=== PATIENT | female | born 1955 | race Caucasian/White ===

== ENCOUNTER 2016-07-27 08:20 | Observation (INO) ==
[2016-07-27] MEDS: NITROGLYCERIN 0.4 MG SUBLINGUAL TABLET SL PRN ×3 (08:48→09:00)
[2016-07-27] MEDS ORDERED: GI COCKTAIL 30 ML PO ONE (09:12)
[2016-07-27] MEDS ORDERED: ONDANSETRON 4 MG/2 ML INJECTION IVP ONE (09:12)
[2016-07-27] MEDS ORDERED: NS 1,000 ML IV ONE (09:12)
[2016-07-27] MEDS ORDERED: ASPIRIN 81 MG CHEWABLE TABLET PO ONE (09:12)
--- NOTE | 2016-07-27 10:41 | Emergency Department Report ---
Chest Pain HPI - General Chief Complaint: Chest Pain Stated Complaint: cp Time Seen by Provider: 07/27/16 09:06 - History of Present Illness HPI narrative: 61-year-old female presents with chest pain. She has a history of atrial fibrillation with ablation 2. She has had difficulty controlling her hypertension and the last month has been struggling. This last week she was told to double her Cardizem to control her pressure. She has felt sluggish and tired. Last night felt like she had an elephant sitting on her chest and had some chest pain with shortness of breath. This was intermittent overnight, ultimately progressing through this morning when she came into the emergency department. On arrival she still had chest pain that was 4-5 out of 10. She was given nitroglycerin sublingual which did help resolve her pain. She is now pain- free at rest, did get chest pain and dizziness when she stood up to go to the bathroom. - Related Data Home Medications Medication Instructions Recorded Confirmed Aspirin [Aspir 81] 81 mg PO DAILY #0 03/02/12 07/27/16 Potassium Chloride 10 meq PO DAILY #0 03/02/12 07/27/16 Calcium Carbonate/Vitamin D3 1 tab PO DAILY #0 11/30/14 07/27/16 [Calcium 600-Vit D3 200 Tablet] Multivitamin [Multivitamins] 1 tab PO DAILY #0 11/30/14 07/27/16 D-Mannose 1 gm PO DAILY #0 11/19/15 07/27/16 Hydroxychloroquine Sulfate 300 mg PO DAILY #0 tab 11/19/15 07/27/16 Albuterol Sulfate [Proair 1 puff INH DAILY PRN 07/27/16 07/27/16 Respiclick] Ascorbic Acid [Vitamin C] 500 mg PO DAILY 07/27/16 07/27/16 Levothyroxine Sodium 88 mcg PO ACB 07/27/16 07/27/16 dilTIAZem HCl [Cartia Xt] 120 mg PO BID 07/27/16 07/27/16 Allergies Allergy/AdvReac Type Severity Reaction Status Date / Time egg Allergy Severe RAW EGGS Verified 07/27/16 09:25 CAUSE SWELLING ALL OVER Iodinated Contrast Media - Allergy Severe HIVES, Verified 07/27/16 09:25 Oral and LIPS SWELLED, THROAT ITCHING Penicillins Allergy Severe SWELLS UP Verified 07/27/16 09:25 ON INSIDE codeine AdvReac Intermediate LOW BP Verified 07/27/16 09:25 BABY ASA Allergy Intermediate HIVES AND Uncoded 07/27/16 09:25 SWELLING WHEN TAKEN IN LG DOSES Review of Systems All systems: reviewed and negative except as stated Cardiovascular: Reports: as per HPI Respiratory: Reports: as per HPI Musculoskeletal: Reports: as per HPI PFSH Patient Stated Medical History Angina Yes Heart Murmur Yes Hypertension Yes Other Cardiology Yes: HX OF LUCIO-PARKINSONS WHITE Asthma Yes Bronchitis Yes: HX OF Pneumonia Yes: HX OF Osteoarthritis Yes Surgical History: Hysterectomy - Social History Smoking status: Never smoker Substance use type: does not use Physical Exam - Limitations Limitations: no limitations - General General appearance: alert, in no apparent distress - Normal Exams: Neck:: Full range of motion, without adenopathy, JVD, bruits or thyromegaly Chest/Respirations:: Clear all quigley, with good airflow, and symmetry bilaterally Cardiovascular:: Regular rate and rhythm, without murmur or gallop, Pulses 2+ all extremities, capillary refill, <2 seconds all extremities Abdomen:: Bowel sounds positive Neurological:: Patient is alert, and oriented, cranial nerves, motor/sensory/ cerebellar, exams w/o gross deficits, to observation Course Vital Signs Temperature 98.0 F 07/27/16 08:20 Pulse Rate 74 07/27/16 08:20 Respiratory Rate 24 07/27/16 08:20 Blood Pressure 204/98 H 07/27/16 08:20 Pulse Oximetry 98 07/27/16 08:20 Temperature 98.0 F 07/27/16 08:20 Pulse Rate 68 07/27/16 11:00 Respiratory Rate 14 07/27/16 11:00 Blood Pressure 192/85 H 07/27/16 11:00 Pulse Oximetry 98 07/27/16 10:15 Chest Pain - MDM Narrative Medical decision making narrative: Patient has normal CBC CMP troponin. Chest x-ray is negative. D-dimer is negative. EKG 2 is negative. Patient did have repeat episode of chest pain while in the ED, EKG was obtained which showed no acute changes. She was given another nitroglycerin and pain resolved. Cardiology was consulted and came to evaluate the patient in regards to potential for admission due to chest pain and other hypertensive issues. Patient will be admitted to Dr. Mills. - Lab Data Result diagrams: 07/27/16 09:13 07/27/16 09:13 Lab Results 07/27/16 07/27/16 07/27/16 Range/Units 09:13 09:13 09:13 WBC 5.8 (4.5-11.0) T/MM3 RBC 5.06 (4.00-5.20) M/MM3 Hgb 14.3 (12-16) GM/DL Hct 43.0 (36-46) % MCV 85.0 (80-100) UM3 MCH 28.3 (26-34) UUG MCHC 33.3 (31-37) GM/DL RDW Std Deviation 38.1 (36.9-50.2) FL Plt Count 344 (130-400) T/MM3 MPV 9.4 (9.4-12.4) UM3 Immature Gran % (Auto) 0.0 (0.0-0.5) % Neut % (Auto) 42.2 (33-66) % Lymph % (Auto) 43.4 (23-45) % Knott % (Auto) 9.6 H (0-9.0) % Eos % (Auto) 4.3 H (0-4) % Baso % (Auto) 0.5 (0-2) % Neut # 2.5 (1.8-7.7) T/MM3 Lymph # 2.5 (1-4.8) T/MM3 Knott # 0.6 (0-0.8) T/MM3 Eos # 0.3 (0-0.5) T/MM3 Baso # 0.0 (0-0.2) T/MM3 Abs Immat Gran (auto) 0.00 (0.00-0.03) T/MM3 INR 1.13 (0.99-1.21) D-Dimer < 150 (0-230) NG/ML Turbidity < 20.0 (0-20) Sodium 147 H (134-144) MEQ/L Potassium 3.9 (3.6-5) MEQ/L Chloride 105 (98-107) MEQ/L Carbon Dioxide 27 (22-30) MEQ/L Anion Gap 15 (5-15) MEQ/L BUN 15.0 (7-17) MG/DL Creatinine 0.7 (0.7-1.2) MG/DL GFR Calculation 85 BUN/Creatinine Ratio 21 (6-26) RATIO Glucose 95 (65-110) MG/DL Calculated Osmolality 283 H (261-280) MOSM/KG Calcium 9.4 (8.4-10.2) MG/DL Total Bilirubin 0.70 (0.20-1.30) MG/DL Icterus Index < 2.0 (0-7) AST 25 (14-36) U/L ALT 38 (9-52) U/L Alkaline Phosphatase 112 (38-126) U/L Troponin I < 0.012 (0-0.12) ng/ml B-Natriuretic Peptide 108 (0-175) pg/mL Total Protein 7.7 (6.3-8.2) G/DL Albumin 4.4 (3.5-5.0) G/DL Globulin 3.3 (2.4-3.6) G/DL Albumin/Globulin Ratio 1.3 (1.1-2.2) RATIO Lipase 93 (23-300) U/L Specimen Hemolysis < 15.0 (0-25) Disposition Clinical Impression: Chest pain Disposition: To [facility] Condition: Improved Prescriptions: No Action Potassium Chloride 10 meq PO DAILY #0 Aspirin [Aspir 81] 81 mg PO DAILY #0 Multivitamin [Multivitamins] 1 tab PO DAILY #0 Calcium Carbonate/Vitamin D3 [Calcium 600-Vit D3 200 Tablet] 1 tab PO DAILY # 0 D-Mannose 1 gm PO DAILY #0 Ascorbic Acid [Vitamin C] 500 mg PO DAILY Hydroxychloroquine Sulfate 300 mg PO DAILY #0 tab Levothyroxine Sodium 88 mcg PO ACB dilTIAZem HCl [Cartia Xt] 120 mg PO BID Albuterol Sulfate [Proair Respiclick] 1 puff INH DAILY PRN PRN Reason: Prn Orders Referrals: Robinson Steinberg MD [Family Provider] - Time of Disposition: 11:28 - Seen By: physician
[2016-07-27] MEDS ORDERED: SALINE FLUSH 10ml SYRINGE IVF PRN ×2 (10:56)
--- NOTE | 2016-07-27 11:07 | XRay Report ---
INDICATION: dyspnea PROCEDURE: CHEST 2-VIEWS UPRIGHT (PA & LAT) Encounter: Initial COMPARISON: November 19, 2015 Findings: The lungs are stable in appearance without new focal airspace consolidation. There is no pleural effusion or pneumothorax. The heart size, pulmonary vascularity and mediastinal contours are unchanged. IMPRESSION: Stable appearance of the chest without acute cardiopulmonary disease. .
[2016-07-27] MEDS ORDERED: HYDRALAZINE 20 MG/ML INJECTION IVP PRN (12:35)
[2016-07-27] MEDS ORDERED: ALBUTEROL SULFATE INH PRN (12:38)
[2016-07-27] MEDS ORDERED: ALBUTEROL 2.5mg/3ml (0.083%) NEB AEROSOL PRN (12:48)
--- NOTE | 2016-07-27 12:49 | Cardiology History & Physical ---
History of Present Illness Chief complaint: chest pain HPI: Rahel is a 61-year-old female who is a patient of Dr. Erasto Jack who presented to the ED this morning with chest pain. She has a history of atrial fibrillation with ablation 2. She had a recent Holter which showed some tachycardia. It was felt that it could be due to her Thyroid medication so it was adjusted. She has had difficulty controlling her hypertension and has been seen in the past week by her half backer and family physician. She was directed to double her Cardizem to control her pressure. She has felt sluggish and tired. Last evening around 5:00 while laying on the couch she felt like she had an elephant sitting on her chest and had some chest pain with shortness of breath. This was intermittent overnight, ultimately progressing through this morning when she came into the ED. On arrival she still had chest pain that was 4-5 out of 10. She was given nitroglycerin sublingual which did help resolve her pain. She did have further chest pain and dizziness when she stood up to go to the bathroom while in the ED. Both EKGs obtained are without ischemic changes. Initial troponin is negative. I was called and examined the patient in the ED. She looks ill and states she has felt fatigued since last Thursday when she suffered from diarrhea while shopping at [employer]. She denies chest pain or pressure at this time. She denies palpitations, dyspnea, dizziness or N/V/D. Will plan to admit to observation for chest pain, R/O GA as well as poor Hypertension control. Review of Systems - Constitutional Constitutional: Present: fatigue, weakness. Absent: chills, fever(s) - EENMT Eyes: Absent: change in vision Balance: Absent: vertigo Mouth/Throat: Absent: sore throat - Cardiovascular Cardiovascular: Present: chest pain. Absent: palpitations, syncope, dyspnea on exertion, orthopnea, edema Vascular: Absent: pedal edema - Respiratory Respiratory: Present: dyspnea (with chest apin last evening). Absent: cough - Gastrointestinal Gastrointestinal: Present: diarrhea (last week). Absent: abdominal pain, nausea , vomiting - Genitourinary Genitourinary: Absent: dysuria - Neurological Neurological: Absent: confusion, dizziness PFSH Patient Stated Medical History Angina Yes Heart Murmur Yes Hypertension Yes Other Cardiology Yes: HX OF LUCIO-PARKINSONS WHITE, W/ablation Asthma Yes Bronchitis Yes: HX OF Pneumonia Yes: HX OF Osteoarthritis Yes Hypothyroidism Yes GERD Yes Lupus Yes Surgical History: Radio Ablation. Appendix. tonsils. Hysterectomy Family History: Asthma Hypertension - Social History Smoking status: Never smoker Household members: spouse Current occupational status: employed Medications Home Medications Medication Instructions Recorded Confirmed Type Aspirin [Aspir 81] 81 mg PO DAILY #0 03/02/12 07/27/16 History Potassium Chloride 10 meq PO DAILY #0 03/02/12 07/27/16 History Calcium Carbonate/Vitamin D3 1 tab PO DAILY #0 11/30/14 07/27/16 History [Calcium 600-Vit D3 200 Tablet] Multivitamin [Multivitamins] 1 tab PO DAILY #0 11/30/14 07/27/16 History D-Mannose 1 gm PO DAILY #0 11/19/15 07/27/16 History Hydroxychloroquine Sulfate 300 mg PO DAILY #0 tab 11/19/15 07/27/16 History Albuterol Sulfate [Proair 1 puff INH DAILY PRN 07/27/16 07/27/16 History Respiclick] Ascorbic Acid [Vitamin C] 500 mg PO DAILY 07/27/16 07/27/16 History Levothyroxine Sodium 88 mcg PO ACB 07/27/16 07/27/16 History Allergies Allergy/AdvReac Type Severity Reaction Status Date / Time egg Allergy Severe RAW EGGS Verified 07/27/16 09:25 CAUSE SWELLING ALL OVER Iodinated Contrast Media - Allergy Severe HIVES, Verified 07/27/16 09:25 Oral and LIPS SWELLED, THROAT ITCHING Penicillins Allergy Severe SWELLS UP Verified 07/27/16 09:25 ON INSIDE codeine AdvReac Intermediate LOW BP Verified 07/27/16 09:25 BABY ASA Allergy Intermediate HIVES AND Uncoded 07/27/16 09:25 SWELLING WHEN TAKEN IN LG DOSES Exam Vital signs: Temp Pulse Resp BP Pulse Ox 95.6 F L 64 18 163/90 H 99 07/27/16 11:54 07/27/16 11:54 07/27/16 11:54 07/27/16 11:54 07/27/16 11:54 - Constitutional no acute distress, well nourished, well developed, disheveled - Routine HEENT Exam ENT: Present: mucous membranes moist - Routine Neck Exam Absent: JVD, carotid bruit - Routine Chest/Breast/Axilla Exam Chest wall: Absent: tenderness Results 07/28/16 03:14 07/28/16 03:14 Intake and Output 07/26/16 07/27/16 07/27/16 22:59 06:59 14:59 Output Total 0 / 0 Balance 0 / 1000 Output: Urine 0 / 0 Other: Weight 130 lb 1.164 oz Patient Weight 07/28/16 06:59 Weight 130 lb 1.164 oz - Imaging and Cardiology Imaging & Cardiology Narrative: Date of Exam: 07/27/16 Ordering Provider: Vince Dorsey MD Type of Exam(s): XR chest 2V Reason for Exam(s): dyspnea INDICATION: dyspnea PROCEDURE: CHEST 2-VIEWS UPRIGHT (PA & LAT) Encounter: Initial COMPARISON: November 19, 2015 Findings: The lungs are stable in appearance without new focal airspace consolidation. There is no pleural effusion or pneumothorax. The heart size, pulmonary vascularity and mediastinal contours are unchanged. IMPRESSION: Stable appearance of the chest without acute cardiopulmonary disease. EKG interpretations - Dysrhythmias Sinus rhythms and dysrhythmias: sinus rhythm - Blocks, axis, hypertrophy, ST abn Repolarization changes or abnormalities: nonspecific abnormality, ST segment, and/or T wave Hospital Course Hospital course: 07/27/16 Chest pain began last evening. Patient has a history of chest pain with low potassium levels, takes K+ supplement. EKG with NSSTT changes, Initial troponin negative. Trend serial troponin levels. Sed rate for possible pericarditis or vasculitis. SL Nitro PRN chest pain. Obtain echo in AM. HTN: Poor control on current medication. Add lisinopril 10mg daily. Hydralazine 10mg IV Q6H PRN SBP <180. UA Hypothyroid:check TSH. Patient reports endocrine likes to keep TSH a little low Recommendation After examining the patient I agree with the above assessment. I am involved in the formulation of the patient's plan of care. Assessment and Plan (1) Chest pain Start date: 07/26/16 Start time: 17:00 Problem details: Patient has a history of chest pain with low potassium levels takes K+ supplement. Status: Acute Chest pain began last evening. Patient has a history of chest pain with low potassium levels, takes K+ supplement. EKG with NSSTT changes, Initial troponin negative. Trend serial troponin levels. Sed rate for possible pericarditis or vasculitis. SL Nitro PRN chest pain (2) Essential (primary) hypertension Problem details: Uncontrolled Status: Chronic Poor control on current medication. Add lisinopril 10mg daily. Hydralazine 10mg IV Q6H PRN SBP <180. UA (3) Hypothyroidism Status: Chronic check TSH. Patient reports endocrine likes to keep TSH a little low (4) Lupus (systemic lupus erythematosus) Status: Chronic Sepsis Assessment - Evaluation Sepsis screening result: No Definite Risk - Focused Exam Vital Signs Temp Pulse Resp BP Pulse Ox 07/27/16 11:54 95.6 F L 64 18 163/90 H 99 07/27/16 11:21 66 18 159/76 H 96
[2016-07-27] MEDS: NS 1,000 ML IV SCH (12:52)
[2016-07-27] MEDS: LISINOPRIL 10 MG TABLET PO SCH (13:29)
[2016-07-27] MEDS ORDERED: NITROGLYCERIN 0.4 MG SUBLINGUAL TABLET SL PRN (13:37)
[2016-07-28] MEDS: NS 1,000 ML IV SCH ×2 (01:54→15:45)
[2016-07-28] MEDS ORDERED: LEVOTHYROXINE 88 MCG TABLET PO SCH (06:30)
[2016-07-28] MEDS ORDERED: HYDROXYCHLOROQUINE 200 MG TABLET PO SCH (08:00)
[2016-07-28] MEDS ORDERED: MULTI-VITAMIN + MINERAL TABLET PO SCH (09:00)
[2016-07-28] MEDS: LISINOPRIL 10 MG TABLET PO SCH (10:47)
[2016-07-28] MEDS: ASPIRIN *EC* 81 MG TABLET PO SCH ×2 (10:48→15:04)
--- NOTE | 2016-07-28 16:25 | Echocardiogram ---
DATE OF PROCEDURE July 28, 2016 This is a two-dimensional echo with spectral Doppler, color-flow and M-mode. It was obtained for chest pain. Left atrial dimension is normal. Left ventricular end-diastolic dimension is normal. Left ventricular wall thickness is normal. LV systolic function is normal with ejection fraction of about 65%. Right atrium is normal. Right ventricle is normal. Aortic root dimension is normal. Mitral, aortic, tricuspid, pulmonary valves are morphologically normal with trace of mitral regurgitation and trace of tricuspid regurgitation with normal estimated pulmonary artery systolic pressure of 27. There is no pericardial effusion. IMPRESSION 1. Normal LV systolic function with ejection fraction of 65%. 2. Trace of mitral regurgitation. 3. Trace of tricuspid regurgitation with normal estimated pulmonary artery systolic pressure of 27. MTDD
--- NOTE | 2016-07-28 18:00 | Discharge Summary ---
<Kristina Hernandez - Last Filed: 07/28/16 17:57> Discharge Information Date of admission: 07/27/16 11:19 Anticipated date of discharge: 07/28/16 Attending Physician: Jarred Mills MD Primary care physician: Robinson Steinberg MD - Discharge Diagnosis (1) Chest pain Qualifiers: Chest pain type: precordial pain Qualified Code(s): R07.2 - Precordial pain Problem Details: Patient has a history of chest pain with low potassium levels takes K+ supplement. Status: Acute (2) Essential (primary) hypertension Problem Details: Uncontrolled Status: Chronic (3) Hypothyroidism Status: Chronic (4) Lupus (systemic lupus erythematosus) Status: Chronic - Laboratory Labs: 07/28/16 03:14 07/28/16 03:14 Laboratory Results - last 48 hr 07/27/16 07/27/16 07/27/16 08:36 09:13 09:13 WBC 5.8 RBC 5.06 Hgb 14.3 Hct 43.0 MCV 85.0 MCH 28.3 MCHC 33.3 RDW Std Deviation 38.1 Plt Count 344 MPV 9.4 Immature Gran % (Auto) 0.0 Neut % (Auto) 42.2 Lymph % (Auto) 43.4 Armstrong % (Auto) 9.6 H Eos % (Auto) 4.3 H Baso % (Auto) 0.5 Neut # 2.5 Lymph # 2.5 Armstrong # 0.6 Eos # 0.3 Baso # 0.0 Abs Immat Gran (auto) 0.00 INR 1.13 D-Dimer < 150 Turbidity Sodium Potassium Chloride Carbon Dioxide Anion Gap BUN Creatinine GFR Calculation BUN/Creatinine Ratio Glucose Calculated Osmolality Calcium Magnesium 2.1 Total Bilirubin Icterus Index AST ALT Alkaline Phosphatase Troponin I B-Natriuretic Peptide Total Protein Albumin Globulin Albumin/Globulin Ratio Lipase TSH 0.16 L Specimen Hemolysis Ur Collection Type Urine Color Urine Clarity Urine pH Ur Specific [place] Urine Protein Urine Glucose (UA) Urine Ketones Urine Occult Blood Urine Nitrate Urine Bilirubin Urine Urobilinogen Ur Leukocyte Esterase Urinalysis Comment 07/27/16 07/27/16 07/27/16 09:13 13:33 15:08 WBC RBC Hgb Hct MCV MCH MCHC RDW Std Deviation Plt Count MPV Immature Gran % (Auto) Neut % (Auto) Lymph % (Auto) Armstrong % (Auto) Eos % (Auto) Baso % (Auto) Neut # Lymph # Armstrong # Eos # Baso # Abs Immat Gran (auto) INR D-Dimer Turbidity < 20.0 Sodium 147 H Potassium 3.9 Chloride 105 Carbon Dioxide 27 Anion Gap 15 BUN 15.0 Creatinine 0.7 GFR Calculation 85 BUN/Creatinine Ratio 21 Glucose 95 Calculated Osmolality 283 H Calcium 9.4 Magnesium Total Bilirubin 0.70 Icterus Index < 2.0 AST 25 ALT 38 Alkaline Phosphatase 112 Troponin I < 0.012 < 0.012 B-Natriuretic Peptide 108 Total Protein 7.7 Albumin 4.4 Globulin 3.3 Albumin/Globulin Ratio 1.3 Lipase 93 TSH Specimen Hemolysis < 15.0 < 15.0 Ur Collection Type Urine, clean catch Urine Color Yellow Urine Clarity Clear Urine pH 7.5 Ur Specific [place] 1.010 L Urine Protein Negative Urine Glucose (UA) Negative Urine Ketones Negative Urine Occult Blood Negative Urine Nitrate Negative Urine Bilirubin Negative Urine Urobilinogen 0.2 Ur Leukocyte Esterase Negative Urinalysis Comment Microscopic not ind. 07/27/16 07/28/16 07/28/16 20:55 03:14 03:14 WBC 7.1 RBC 4.44 Hgb 12.9 Hct 38.3 MCV 86.3 MCH 29.1 MCHC 33.7 RDW Std Deviation 37.9 Plt Count 272 MPV 9.4 Immature Gran % (Auto) 0.0 Neut % (Auto) 39.8 Lymph % (Auto) 42.6 Armstrong % (Auto) 11.7 H Eos % (Auto) 5.2 H Baso % (Auto) 0.7 Neut # 2.8 Lymph # 3.0 Armstrong # 0.8 Eos # 0.4 Baso # 0.1 Abs Immat Gran (auto) 0.00 INR D-Dimer Turbidity < 20.0 Sodium 146 H Potassium 4.3 Chloride 108 H Carbon Dioxide 25 Anion Gap 13 BUN 14.0 Creatinine 0.8 GFR Calculation 72 BUN/Creatinine Ratio 18 Glucose 93 Calculated Osmolality 282 H Calcium 9.0 Magnesium Total Bilirubin Icterus Index < 2.0 AST ALT Alkaline Phosphatase Troponin I < 0.012 B-Natriuretic Peptide Total Protein Albumin Globulin Albumin/Globulin Ratio Lipase TSH Specimen Hemolysis < 15.0 < 15.0 Ur Collection Type Urine Color Urine Clarity Urine pH Ur Specific [place] Urine Protein Urine Glucose (UA) Urine Ketones Urine Occult Blood Urine Nitrate Urine Bilirubin Urine Urobilinogen Ur Leukocyte Esterase Urinalysis Comment 07/28/16 03:14 WBC RBC Hgb Hct MCV MCH MCHC RDW Std Deviation Plt Count MPV Immature Gran % (Auto) Neut % (Auto) Lymph % (Auto) Armstrong % (Auto) Eos % (Auto) Baso % (Auto) Neut # Lymph # Armstrong # Eos # Baso # Abs Immat Gran (auto) INR D-Dimer Turbidity Sodium Potassium Chloride Carbon Dioxide Anion Gap BUN Creatinine GFR Calculation BUN/Creatinine Ratio Glucose Calculated Osmolality Calcium Magnesium Total Bilirubin Icterus Index AST ALT Alkaline Phosphatase Troponin I B-Natriuretic Peptide 182 H Total Protein Albumin Globulin Albumin/Globulin Ratio Lipase TSH Specimen Hemolysis Ur Collection Type Urine Color Urine Clarity Urine pH Ur Specific [place] Urine Protein Urine Glucose (UA) Urine Ketones Urine Occult Blood Urine Nitrate Urine Bilirubin Urine Urobilinogen Ur Leukocyte Esterase Urinalysis Comment - Radiology Radiology: Date of Exam: 07/27/16 Ordering Provider: Vince Dorsey MD Type of Exam(s): XR chest 2V Reason for Exam(s): dyspnea INDICATION: dyspnea PROCEDURE: CHEST 2-VIEWS UPRIGHT (PA & LAT) Encounter: Initial COMPARISON: November 19, 2015 Findings: The lungs are stable in appearance without new focal airspace consolidation. There is no pleural effusion or pneumothorax. The heart size, pulmonary vascularity and mediastinal contours are unchanged. IMPRESSION: Stable appearance of the chest without acute cardiopulmonary disease. History of Present Illness HPI: Rahel is a 61-year-old female who is a patient of Dr. Erasto Jack who presented to the ED this morning with chest pain. She has a history of atrial fibrillation with ablation 2. She had a recent Holter which showed some tachycardia. It was felt that it could be due to her Thyroid medication so it was adjusted. She has had difficulty controlling her hypertension and has been seen in the past week by her boiler tube blower and family physician. She was directed to double her Cardizem to control her pressure. She has felt sluggish and tired. Last evening around 5:00 while laying on the couch she felt like she had an elephant sitting on her chest and had some chest pain with shortness of breath. This was intermittent overnight, ultimately progressing through this morning when she came into the ED. On arrival she still had chest pain that was 4-5 out of 10. She was given nitroglycerin sublingual which did help resolve her pain. She did have further chest pain and dizziness when she stood up to go to the bathroom while in the ED. Both EKGs obtained are without ischemic changes. Initial troponin is negative. I was called and examined the patient in the ED. She looks ill and states she has felt fatigued since last Thursday when she suffered from diarrhea while shopping at [employer]. She denies chest pain or pressure at this time. She denies palpitations, dyspnea, dizziness or N/V/D. Will plan to admit to observation for chest pain, R/O LA as well as poor Hypertension control. Hospital Course Hospital course: Chest pain:Patient has a history of chest pain with low potassium levels takes K + supplement. Chest pain began last evening. Patient has a history of chest pain with low potassium levels, takes K+ supplement. EKG with NSSTT changes, Initial troponin negative. Trend serial troponin levels. Sed rate for possible pericarditis or vasculitis. SL Nitro PRN chest pain. HTN: Poor control on current medication. Add lisinopril 10mg daily. Hydralazine 10mg IV Q6H PRN SBP <180. UA Hypothyroid:check TSH. Patient reports endocrine likes to keep TSH a little low Exam Vital signs: Temp Pulse Resp BP Pulse Ox 96.0 F L 68 18 146/81 H 96 07/28/16 15:22 07/28/16 15:22 07/28/16 15:22 07/28/16 15:22 07/28/16 15:22 - Constitutional no acute distress, well nourished, cooperative - Routine HEENT Exam ENT: Present: mucous membranes moist - Routine Neck Exam Absent: JVD, carotid bruit - Routine Chest/Breast/Axilla Exam Chest wall: Absent: tenderness - Routine Respiratory Exam Present: CTA bilaterally. Absent: rales, wheezes - Routine Cardiovascular Exam Present: RRR, bradycardia. Absent: murmur - Routine Abdominal Exam Present: soft, normoactive bowel sounds - Routine Neurological Exam Present: alert, oriented X3 - Routine Psychiatric Exam Present: normal affect, normal thought process Results 07/28/16 03:14 07/28/16 03:14 Cardiac Enzymes 07/27/16 07/28/16 Range/Units 20:55 03:14 Troponin I < 0.012 (0-0.12) ng/ml B-Natriuretic Peptide 182 H (0-175) pg/mL Coagulation 07/28/16 Range/Units 03:14 B-Natriuretic Peptide 182 H (0-175) pg/mL CBC 07/28/16 Range/Units 03:14 WBC 7.1 (4.5-11.0) T/MM3 RBC 4.44 (4.00-5.20) M/MM3 Hgb 12.9 (12-16) GM/DL Hct 38.3 (36-46) % Plt Count 272 (130-400) T/MM3 Neut # 2.8 (1.8-7.7) T/MM3 Lymph # 3.0 (1-4.8) T/MM3 Armstrong # 0.8 (0-0.8) T/MM3 Eos # 0.4 (0-0.5) T/MM3 Baso # 0.1 (0-0.2) T/MM3 Comprehensive Metabolic Panel 07/28/16 Range/Units 03:14 Sodium 146 H (134-144) MEQ/L Potassium 4.3 (3.6-5) MEQ/L Chloride 108 H (98-107) MEQ/L Carbon Dioxide 25 (22-30) MEQ/L BUN 14.0 (7-17) MG/DL Creatinine 0.8 (0.7-1.2) MG/DL Glucose 93 (65-110) MG/DL Calcium 9.0 (8.4-10.2) MG/DL Intake and Output 07/28/16 07/28/16 07/28/16 06:59 14:59 22:59 Intake Total 1296.25 / 1296.25 100 / 100 703.75 / 703.75 Output Total 800 / 800 Balance 496.25 / 496.25 100 / 100 703.75 / 703.75 Intake: IV 1296.25 / 1296.25 703.75 / 703.75 Normal Saline 1,000 ml @ 1296.25 / 1296.25 703.75 / 703.75 75 mls/hr IV .[id number] SARAN Rx#:[id number] Oral 100 / 100 Output: Urine 800 / 800 Other: # Voids 1 Weight 131 lb 9.855 oz Patient Weight 07/29/16 06:59 Weight 131 lb 9.855 oz - Imaging and Cardiology EKG results: report reviewed Discharge Plan - Med Rec/Dispo Referrals/Follow Up: Erasto Jack MD [Physician] - Isai Instructions: Chest Pain (GEN) Additional Instructions: New Prescriptions: Lisinopril 10mg by mouth daily Take Diltiazem 120mg po daily Prescriptions: New Lisinopril [Prinivil] 10 mg PO DAILY #30 tab DiltiaZEM CD [Cardizem Cd] 120 mg PO DAILY #30 cap Continue Potassium Chloride 10 meq PO DAILY #0 Aspirin [Aspir 81] 81 mg PO DAILY #0 Multivitamin [Multivitamins] 1 tab PO DAILY #0 Calcium Carbonate/Vitamin D3 [Calcium 600-Vit D3 200 Tablet] 1 tab PO DAILY # 0 D-Mannose 1 gm PO DAILY #0 Ascorbic Acid [Vitamin C] 500 mg PO DAILY Hydroxychloroquine Sulfate 300 mg PO DAILY #0 tab Levothyroxine Sodium 88 mcg PO ACB Albuterol Sulfate [Proair Respiclick] 1 puff INH DAILY PRN PRN Reason: Prn Orders Discontinued dilTIAZem HCl [Cartia Xt] 120 mg PO BID - Disposition 01 Discharged Home, Self-Care <Jarred Mills - Last Filed: 08/01/16 12:00> Discharge Information Date of admission: 07/27/16 11:19 Attending Physician: Jarred Mills MD Primary care physician: Robinson Steinberg MD - Discharge Diagnosis (1) Chest pain Qualifiers: Chest pain type: precordial pain Qualified Code(s): R07.2 - Precordial pain Problem Details: Patient has a history of chest pain with low potassium levels takes K+ supplement. Status: Acute (2) Essential (primary) hypertension Problem Details: Uncontrolled Status: Chronic (3) Hypothyroidism Status: Chronic (4) Lupus (systemic lupus erythematosus) Status: Chronic - Laboratory Labs: 07/28/16 03:14 07/28/16 03:14 Hospital Course Hospital course: Recommendation After examining the patient I agree with the above assessment. I am involved in the formulation of the patient's plan of care. Exam Vital signs: Temp Pulse Resp BP Pulse Ox 96.0 F L 68 18 146/81 H 96 07/28/16 15:22 07/28/16 15:22 07/28/16 15:22 07/28/16 15:22 07/28/16 15:22 Results 07/28/16 03:14 07/28/16 03:14
== END 2016-07-28 19:40 | disposition home or self-care (01) ==
LOC: ED 08:20 → MED 08:20
PROVIDERS: ADMIT Internal Medicine Cardiovascular Disease; ATTEND Internal Medicine Cardiovascular Disease